=== PATIENT | female | born 1980 | race African-American/Black ===

== ENCOUNTER 2020-11-17 00:01 | Inpatient (IN) | payer BC, SELFPAY ==
--- NOTE | 2020-11-16 17:05 | PM.IMHP ---
H&P: HPI History of Present Illness Date/Time: 11/16/20 17:05 40 y/o F presenting for elective induction of labor at 39w. Cervidil followed by Yina patient stands her condition procedure and risks and agrees to proceed complicated by advanced maternal age, recurrent miscarriage, history of ectopic , abnormal progesterone, MTHFR, hyperemesis gravidarum (resolved), smoker, genital herpes on antiviral therapy, GBS positive and HPV. care began 04/07/1990 with 10 visits monitored with serial ultrasounds none invasive testing negative for chromosome abnormality AFP screen negative level 2 ultrasound genetic Counseling negative 1 hour glucose normal ,GBS positive, treatments given for MTHFR with B12 folic acid progesterone and aspirin therapy. Patient has had no active herpes outbreaks while on antiviral therapy throughout the . she has multi parous and desires bilateral tubal sterilization she understands it is permanent irreversible she does not desire future fertility she signed the [facility] [place] of Public aid tubal consent forms she understands failure rate of 3 to 05/999 with increased risk of ectopic in its sequally and she agrees to proceed. Chief Complaint: elective induction of labor in Term Review of Systems Review of Systems: All systems reviewed & are unremarkable except as noted in HPI and below Constitutional: Constitutional: Reports no additional constitutional complaints Eyes: Eyes: Reports no additional eye complaints ENT: Reports system reviewed and no additional complaints, except as documented Cardiovascular: Cardiovascular: Reports no additional cardiovascular complaints Respiratory: Respiratory: Reports no additional respiratory complaints Gastrointestinal: Gastrointestinal: Reports no additional gastrointestinal complaints Genitourinary: Genitourinary: Reports no additional female genitourinary complaints Musculoskeletal: Musculoskeletal: Reports no additional musculoskeletal complaints Integumentary/Breasts: Skin/Breast: Reports system reviewed and no additional complaints, except as docu Neurologic: Reports system reviewed and no additional complaints, except as documented Psychiatric: Psychiatric: Reports no additional psychiatric complaints Endocrine: Endocrine: Reports no additional endocrine complaints Hematologic/Lymphatic: Hematologic/Lymphatic: Reports no additional hematologic/lymphatic complaints Allergic/Immunologic: Allergic/Immunologic: Reports no additional allergic/immunologic complaints [facility] Past Medical History Medical History (Updated 11/16/20 @ 17:28 by Yovany Gupta MD) Advanced maternal age (AMA) in Genital herpes Group B streptococcal carriage complicating Heterozygous MTHFR mutation C677T History of ectopic History of recurrent miscarriages 02/05/200584809Upxhuozm, SpontaneousOnly year known, pt did not know she was and they didn't say how far along she was.historical 02/05/20061Pt unsure of when in 2006 but was 4 weeks . HPV (human papilloma virus) anogenital infection Ovarian ectopic Excision of ectopic ovarian - 10/13/2019 Smoker Vaginal delivery 01/22/201214023 hrs.7 lbs.FVaginalFull Term [facility]Reg[facility] V[facility] delivery 05/23/20091406 lbs.10 oz.MVaginalFull Term BirthCritical access hospitalPt unsure of length of labor. Vaginal delivery 11/05/200714020 hrs.7 lbs.6 oz.MVaginalFull Term [facility]Reg[facility] Vaginal delivery 07/22/200114013 hrs.6 lbs.6.99 oz.MVaginalFull Term [facility] [facility] Surgical History (Updated 11/16/20 @ 17:31 by Yovany Gupta MD) History of salpingectomy Excision of ectopic ovarian - 10/13/2019 Family History Family History (Reviewed 11/16/20 @ 17:3
--- NOTE | 2020-11-16 17:18 | WPDHPUPDATE1 ---
History and Physical Update Update Date/Time: 11/16/20 17:18 History and Physical has been reviewed, including an updated exam of the patient. There are NO changes in the patient's condition. Risks, benefits, and alternatives have been discussed and questions answered. Patient agrees to proceed with procedure. 40 y/o F presenting for elective induction of labor at 39w. Cervidil followed by Yina patient stands her condition procedure and risks and agrees to proceed complicated by advanced maternal age, recurrent miscarriage, history of ectopic , abnormal progesterone, MTHFR, hyperemesis gravidarum (resolved), smoker, genital herpes on antiviral therapy, GBS positive and HPV. care began 04/07/1990 with 10 visits monitored with serial ultrasounds none invasive testing negative for chromosome abnormality AFP screen negative level 2 ultrasound genetic Counseling negative 1 hour glucose normal ,GBS positive, treatments given for MTHFR with B12 folic acid progesterone and aspirin therapy. Patient has had no active herpes outbreaks while on antiviral therapy throughout the . she has multi parous and desires bilateral tubal sterilization she understands it is permanent irreversible she does not desire future fertility she signed the [place] department of Public aid tubal consent forms she understands failure rate of 3 to 05/999 with increased risk of ectopic in its sequally and she agrees to proceed.
[2020-11-17] VITALS (188 sets, daily range): BP systolic 89–126; BP diastolic 38–78; PULSE 26–134; RESP 16–18; TEMP 36.1–36.8; O2SAT 87–100; BMI 31.6
--- NOTE | 2020-11-17 00:01 | LDADM ---
This patient, Bobbi Guevara, was admitted to Labor/Delivery/Recovery 104 on 11/17/20 at 00:01. Plans for labor, pain management and were discussed with patient. Patient/family oriented to hospital policies and general routines including ID bracelet, bed and alarms, visiting hours, pain management, procedures, bathroom and other care routines, personal items, smoking policy, room service/diet and guest tray routines, security routines, and visiting hours. Patient/Family are encouraged to report perceived risks to care and to ask questions if they do not understand what they are told or what they should do. See OBIX for further documentation.
--- OUTSIDE RECORDS SUMMARY | 2020-11-17 00:15 | XMS_ITS ---
:1980 Author Care Team Providers Name Role Phone OSIRIS BEYER Machine Heel Sprayer [phone] Allergies Code Code System Name Reaction Severity Status Onset Penicillins Hives Moderate Active ? Notes: NKDA 01/19/17 BK Medications Name Status Start Date Stop Date ? ? acyclovir 800 mg tablet Active ? Not avai lable TAKE 1 TABLET BY MOUTH EVERY DAY Aspirin Low Dose 81 mg tablet,delayed release Completed ? 11/04/2020 Take 2 tablets every day by oral route. baclofen 10 mg tablet Completed ? 09/04/2019 calcium 250 mg-D3 400 unit-magnesium 40 [id number]-copper-raymundo an tablet Completed ? 04/07/2020 Take 2 tablets every day by oral route as directed for 30 days. Calcium with Vitamin D 600 mg (1,500 mg)-400 unit tablet Active ? Not available Take 1 tablet twice a day by oral route. cyanocobalamin (vit B-12) 1,000 mcg/mL injection solution Active ? Not available Inject 1 mL every month by subcutaneous route. cyclobenzaprine 10 mg tablet Completed ? Depo-Provera 150 mg/mL intramuscular syringe Completed ? 11/01/2018 Inject 150 mL every 3 months by intramuscular route as directed . ergocalciferol (vitamin D2) 1,250 mcg Completed ? 04/07/2020 (50,000 unit) capsule famotidine 20 mg tablet Active ? Not avai lable Take 1 tablet twice a day by oral route. fluticasone propionate 50 mcg/actuation Completed ? 11/01/2018 nasal spray,suspension folic acid 1 mg tablet Active ? Not avail able Take 2 tablets twice a day by oral rout
--- OUTSIDE RECORDS SUMMARY | 2020-11-17 00:16 | XMS_ITS | Encounter Summary ---
:1980 Author Care Team Providers Name Role Phone Lesley BEYER Boiler Installer [phone] Reason for Visit ob routine visit Assessment and Plan 1. Routine care Amniotic sac still intact. f/u in 1 week. ? urinalysis, dipstick 2. Advanced maternal age ? advanced maternal age: car e instructions 3. Heterozygous methylenetetrahy drofolate reductase mutation 4. Abnormal progesterone 5. Genital herpes simplex ? genital herpes: care instr uctions 6. Group B Streptococcus carrier 7. Human papilloma virus infecti on 8. History of ectopic Discussion Note: None recorded. Plan of Care Reminders Provider Appointments Ob 15 on or around Yovany taylor, 11/18/2020 ? 12/07/2020 Yovany calvo, 15 3:45PM Lab Urinalysis, 11/11/2020 In-Of fice Order Dipstick Referral None ? ? recorded. Procedures None ? ? recorded. Surgeries None ? ? recorded. Imaging None ? ? recorded. Medications Name Start Date ? ? acyclovir 800 mg tablet ? TAKE 1 TABLET B
--- OUTSIDE RECORDS SUMMARY | 2020-11-17 00:16 | XMS_ITS | Encounter Summary ---
:1980 Author Care Team Providers Name Role Phone Lesley BEYER Trucksmith [phone] Reason for Visit ob routine visit CC Pt having Benzie gillespie contractions, No spotting, fluid leakage. Baby moving well. Pt was unable to complete the 3 hr gtt, pt got sick. Assessment and Plan 1. Routine care KATJA at 36w1d. 09/23/2020 wi th appropriate growth, EFW 47%. 36 week labs/cultures today. RTC In [address] Gupta. ? urinalysis, dipstick ? CBC - Please fax results o [facility] [phone] 2. Advanced maternal age Follows with MFM. NIPT low ris k. Continue ASA for pre-eclampsia prevention. Warning signs discussed. 3. screening ? culture, vaginal/rectal, s treptococcus group B - Please fax results to [facility] [phone] 4. Venereal disease screening Routine screening ? HSV (1+2) DNA, qual, PCR, unspecified specimen - Please fax results to [facility] [phone] ? bacterial vaginosis + vagi nitis panel, vaginal - Please fax results to [facility] [phone] ? HIV 1+2 AB + HIV 1 p24 Ag, qualitative immunoassay, serum - Please fax results to [facility] [phone] ? RPR (rapid plasma reagin), serum - Please fax results to [facility] [phone] 5. Heterozygous methylenetetrahy drofolate reductase mutation heterozygous for the MTHFR C67 7T variant. Continue folic acid and progesterone. B12 administered.
--- OUTSIDE RECORDS SUMMARY | 2020-11-17 00:16 | XMS_ITS | Encounter Summary ---
:1980 Author Care Team Providers Name Role Phone Lesley BEYER Pocket Setter [phone] Reason for Visit ob routine visit Assessment and Plan 1. Routine care patient will be admitted to an [facility] labor and delivery tonight for induction ? urinalysis, dipstick 2. Advanced maternal age ? advanced maternal age: car e instructions 3. Heterozygous methylenetetrahy drofolate reductase mutation 4. Abnormal progesterone 5. Genital herpes simplex ? genital herpes: care instr uctions 6. Group B Streptococcus carrier Discussion Note: None recorded. Plan of Care Reminders Provider Appointments Ob 15 on or around Yovany talyor, 11/18/2020 ? 12/07/2020 Yovany calvo, 15 3:45PM Lab Urinalysis, 11/16/2020 In-Of fice Order Dipstick Referral None ? ? recorded. Procedures None ? ? recorded. Surgeries None ? ? recorded. Imaging None ? ? recorded. Medications Name Start Date ? ? acyclovir 800 mg tablet ? TAKE 1 TABLET BY MOUTH EVERY DAY Calcium with Vitamin D 600 mg (1,500 mg)-400 u
--- OUTSIDE RECORDS SUMMARY | 2020-11-17 00:16 | XMS_ITS | Encounter Summary ---
:1980 Author Care Team Providers Name Role Phone Lesley BEYER Stock Checkerer [phone] Reason for Visit ob routine visit Assessment and Plan Assessment Note DEON MayerS 1. Routine care KATJA at 30w0d. compli cated by advanced maternal age, recurrent miscarriage, abnormal progesterone, MTHF R, hyperemesis gravidarum, genital herpes, and HPV. 1 hour GCT completed today, tda p administered, kick counts discussed. RTC in 2 weeks. ? Boostrix Tdap 2.5 Lf unit- 8 mcg-5 Lf/0.5 mL intramuscular syringe ? US, obstetric, 3rd trimest er ? counting your baby's kicks : care instructions ? kick counts ? CBC - Please fax results t o [facility] [phone] 2. Advanced maternal age Follows with MFM. NIPT low ris k. 3. screening ? glucose tolerance test, po st-50G, 1-hour - Please fax results to [facility] [phone] 4. Heterozygous methylenetetrahy drofolate reductase mutation heterozygous for the MTHFR C67 7T variant. Continue folic acid and progesterone. B12 administered. ? cyanocobalamin (vit B-12) 1,000 mcg/mL injection solution 5. Recurrent miscarriage Recurrent miscarriage protocol . 6. Genital herpes simplex Acyclovir for suppression. 7. Pelvic and perineal pain ? maternity
--- OUTSIDE RECORDS SUMMARY | 2020-11-17 00:16 | XMS_ITS | Encounter Summary ---
:1980 Author Care Team Providers Name Role Phone Lesley BEYER Business Process Representative [phone] Reason for Visit ob routine visit CC No spotting, cramping or fluid leakag e. Baby moving well. Assessment and Plan 1. Routine care KATJA at 26w0d. compli cated by advanced maternal age, subchorionic hematoma, recurrent miscarriage, abnorma l progesterone, MTHFR, hyperemesis gravidarum, genital herpes, and HPV. Fol lowing with MFM. U/S 08/03/2020 with normal anatomy survey and appropriate fet al growth. RTC in 2 weeks for 1 hour GCT, f/u packet provided. ? urinalysis, dipstick 2. Advanced maternal age Follows with MFM. NIPT low ris k. Continue ASA. 3. Heterozygous methylenetetrahy drofolate reductase mutation heterozygous for the MTHFR C67 7T variant. Continue folic acid and progesterone. B12 administered. 4. Recurrent miscarriage Recurrent miscarriage protocol . 5. Genital herpes simplex Acyclovir for suppression. 6. Sterilization requested Patient desires PP BTL. Papers signed today Discussion Note: None recorded.Patient educational handouts: No information available. Plan of Care Reminders Provider Appointments Ob 15 on or around Yovany taylor, 11/18/2020 ? 12/07/2020 Yovany calvo, 15 3:45PM Lab Urinalysis, 08/18/2020 In-Of fice Order Dipstick
--- OUTSIDE RECORDS SUMMARY | 2020-11-17 00:16 | XMS_ITS | Encounter Summary ---
:1980 Author Care Team Providers Name Role Phone Lesley BEYER Leather Goods Sales Representative [phone] Reason for Visit ob routine visit CC Pt states that her stomach area is re ally tightening up . Pt is having cramping in lower abdomen and pelvic area. Pt is also having swelling in her feet ankles. No spotting, fluid leakage, or contrac tions. Baby not moving today, but has be en very active up til today. Assessment and Plan 1. Routine care ? urinalysis, dipstick 2. Advanced maternal age ? advanced maternal age: car e instructions 3. Abnormal progesterone 4. Heterozygous methylenetetrahy drofolate reductase mutation 5. Family planning surveillance Depo- Not to be started until 6 week post ? medroxyprogesterone 150 mg /mL intramuscular suspension Discussion Note Depo- Not to be started until 6 wee k post Plan of Care Reminders Provider Appointments Ob 15 on or around Yovany taylor, 11/18/2020 ? 12/07/2020 Yovany calvo, 15 3:45PM Lab Urinalysis, 11/04/2020 In-Of fice Order Dipstick Referral None ? ? recorded. Procedures None ? ? recorded. Surgeries None ? ? recorded. Imaging None ? ? recorded.
[2020-11-17] MEDS: LACTATED RINGERS 1,000 ML 125 ML IV CONT ×3 (01:01→17:20)
[2020-11-17] MEDS: CLINDAMYCIN 900 MG/D5W 50 ML 900 MG/50 ML PIGGYBACK 50 MG IVPB ×3 (01:02→17:20)
[2020-11-17] MEDS: DINOPROSTONE 10 MG VAG INSERT VAGINAL (01:05)
[2020-11-17 01:07] LABS: Basophils Percent Auto 0.5 % (0.2-1.2); Eosinophils Absolute Auto 0.1 K/mm3 (0-0.3); Eosinophils Percent Auto 1.6 % (0-4.4); Hemoglobin 10.4 g/dL (12.0-15.0); Immature Granulocyte Absolute 0.13 K/mm3 (0.00-0.031); Immature Granulocyte Percent A 1.6 % (0-0.5); Lymphocytes Absolute Auto 2.15 K/mm3 (0.9-3.2); Lymphocytes Percent Auto 25.7 % (18.3-44.2); Mean Corpuscular HGB Conc 32.5 g/dl (32-36); Mean Corpuscular Hemoglobin 27.2 pg (26-34); Mean Corpuscular Volume 83.6 fl (80-100); Mean Platelet Volume 10.6 fl (7.4-10.4); Monocytes Absolute Auto 0.7 K/mm3 (0.1-0.6); Monocytes Percent Auto 8.5 % (2.6-8.5); Neutrophils Absolute Auto 5.2 K/mm3 (1.3-6.7); Neutrophils Percent Auto 62.1 % (45.5-73.1); Platelet Count Result 291 k/mm3 (150-375); Red Blood Count 3.83 M/mm3 (4.2-5.4); Red Cell Distribution Width 14.9 % (11.5-14.5); White Blood Count 8.4 K/mm3 (4.5-10.0)
[2020-11-17 02:01] LABS: HIV 1/2 Ab P24 Ag Result Negative (Negative)
[2020-11-17 04:31] LABS: Barbiturate Screen Urine Negative (Negative); Benzodiazepines Screen Urine Negative (Negative)
[2020-11-17 04:35] LABS: Amphetamine Screen Urine Negative (Negative); Cannabinoid Screen Urine Negative (Negative); Methadone Screen Urine Negative (Negative); Opiate Screen Urine Negative (Negative); Phencyclidine Screen Urine Negative (Negative)
[2020-11-17 07:28] LABS: Rapid Plasma Reagin Non-Reactive (NonReactive)
[2020-11-17] MEDS: FAMOTIDINE 20 MG/2 ML VIAL IV PUSH (09:45)
--- NOTE | 2020-11-17 09:45 | PC.NURSE ---
Paused Clindamycin IVPB, flushed IV with NS, gave Pepcid over 3 mins, flushed with NS, and resumed Clindamycin IVPB
--- NOTE | 2020-11-17 09:51 | PM.OBPNLAB ---
Pain Control Date/time seen: 11/17/20 08:51 Pain control: tolerating well Pelvic Exam Dilation (cm): 2 Effacement (%): 50 station: -3 Amniotic membrane status: Intact Contractions Monitor mode: External Contraction pattern: Irregular Contraction phase: Resting Contraction intensity: Moderate Status status: Category l Assessment and Plan Assessment: induction ongoing Plan: continuous present management
--- NOTE | 2020-11-17 12:19 | WPDANESEPPF ---
Anes - Initial Pre Proc Eval Date/Time: 11/17/20 12:19 Surgeon: Yovany Gupta MD Pre Op Diagnosis: IOL Patient Data Age: 40 Gender: F Height: 1.65 m Weight: 86.36 kg Last Vital Signs Temp 36.3 C L 11/17/20 11:55 Pulse 85 11/17/20 10:45 Resp 16 11/17/20 04:30 BP 112/69 11/17/20 10:45 Allergies Allergy/AdvReac Type Severity Reaction Status Date / Time Penicillins Allergy Hives Verified 11/10/20 15:35 Home Medications Medication Instructions Recorded Confirmed Type PNV cmb#95-ferrous fumarate-FA 1 tablet PO HS 11/10/20 11/17/20 History [] progesterone micronized 200 mg PO HS 11/10/20 11/17/20 History Laboratory Tests 11/17/20 11/17/20 11/17/20 00:49 00:49 00:49 WBC 8.4 K/mm3 K/mm3 (4.5-10.0) RBC 3.83 M/mm3 L M/mm3 (4.2-5.4) Hgb 10.4 g/dL L g/dL (12.0-15.0) Hct 32.0 % L % (37.0-47.0) MCV 83.6 fl fl (80-100) MCH 27.2 pg pg (26-34) MCHC 32.5 g/dl g/dl (32-36) RDW 14.9 % H % (11.5-14.5) Plt Count 291 k/mm3 k/mm3 (150-375) MPV 10.6 fl H fl (7.4-10.4) Immature Gran % (Auto) 1.6 % H % (0-0.5) Neut % (Auto) 62.1 % % (45.5-73.1) Lymph % (Auto) 25.7 % % (18.3-44.2) Pender % (Auto) 8.5 % % (2.6-8.5) Eos % (Auto) 1.6 % % (0-4.4) Baso % (Auto) 0.5 % % (0.2-1.2) Lymph # (Auto) 2.15 K/mm3 K/mm3 (0.9-3.2) Pender # (Auto) 0.7 K/mm3 H K/mm3 (0.1-0.6) Eos # (Auto) 0.1 K/mm3 K/mm3 (0-0.3) Baso # (Auto) 0.0 K/mm3 K/mm3 (0.0-0.1) Abs Immat Gran (auto) 0.13 K/mm3 H K/mm3 (0.00-0.031) Absolute Neuts (auto) 5.2 K/mm3 K/mm3 (1.3-6.7) Absolute Nucleated RBC 0.0 K/mm3 K/mm3 (0.0-0.012) Nucleated RBC % 0.0 % % (0.0-0.2) Urine Opiates Screen Urine Methadone Screen Ur Barbiturates Screen Ur Phencyclidine Scrn Ur Amphetamine Screen U Benzodiazepines Scrn Urine Cocaine Screen U Cannabinoids Screen RPR Non-reactive (NonReactive) HIV 1&2 Ab/P24 Ag 4thGn Negative (Negative) Blood Type Antibody Screen 11/17/20 11/17/20 00:49 03:21 WBC RBC Hgb Hct MCV MCH MCHC RDW Plt Count MPV Immature Gran % (Auto) Neut % (Auto) Lymph % (Auto) Pender % (Auto) Eos % (Auto) Baso % (Auto) Lymph # (Auto) Pender # (Auto) Eos # (Auto) Baso # (Auto) Abs Immat Gran (auto) Absolute Neuts (auto) Absolute Nucleated RBC Nucleated RBC % Urine Opiates Screen Negative (Negative) Urine Methadone Screen Negative (Negative) Ur Barbiturates Screen Negative (Negative) Ur Phencyclidine Scrn Negative (Negative) Ur Amphetamine Screen Negative (Negative) U Benzodiazepines Scrn Negative (Negative) Urine Cocaine Screen TNP U Cannabinoids Screen Negative (Negative) RPR HIV 1&2 Ab/P24 Ag 4thGn Blood Type O Positive Antibody Screen Negative Patient hx anesthesia problems: none Family hx anesthesia problems: none Results Review: All pre-operative results and documents have been reviewed as part of the pre-operative evaluation. [facility] Past Medical History Medical History (Updated 11/16/20 @ 17:28 by Yovany Gupta MD) Advanced maternal age (AMA) in Genital herpes Group B streptococcal carriage complicating Heterozygous MTHFR mutation C677T History of ectopic History of recurrent miscarriages 01/01/26037Rkyrsxpf, SpontaneousOnly year known, pt did
[2020-11-17] MEDS: OXYTOCIN 30 UNITS/NS 500 ML 30 UNITS/500 ML BAG IV CONT (13:00)
--- NOTE | 2020-11-17 17:10 | PM.OBPNLAB ---
Pain Control Date/time seen: 11/17/20 17:10 Pain control: tolerating well and epidural (placed at noon) Pelvic Exam Dilation (cm): 4 Effacement (%): 75 station: -2 Amniotic membrane status: Ruptured (AROM clear amniotic fluid IUPC and FSE placed without difficulty) Contractions Monitor mode: Internal Contraction frequency: 3 Contraction duration: 50 Contraction pattern: Regular Contraction phase: Contraction Contraction intensity: Strong/Firm Status status: Category l Comments: decel to 54-60 for 40sec after AROM resolved with position change, IV fluids and O2 now 150 reactive Assessment and Plan Pitocin rate (mU/min): 6 Assessment: active labor and induction ongoing Plan: continuous present management
--- NOTE | 2020-11-17 19:37 | PM.OBPNLAB ---
Pain Control Date/time seen: 11/17/20 19: Pain control: tolerating well and epidural Pelvic Exam Dilation (cm): 6 Effacement (%): 90 station: -1 Amniotic membrane status: Ruptured (AROM clear amniotic fluid IUPC and FSE placed without difficulty) Contractions Monitor mode: Internal Contraction frequency: 3 Contraction duration: 50 Contraction pattern: Regular Contraction phase: Contraction Contraction intensity: Strong/Firm Status status: Category l Assessment and Plan Assessment: active labor Plan: continuous present management Comments: has 3 doses of clindamycin for GBS prophylaxis
--- NOTE | 2020-11-17 20:02 | PM.OBPNLAB ---
Pain Control Date/time seen: 11/17/20 20:00 Pain control: tolerating well and epidural Pelvic Exam Dilation (cm): 10 Effacement (%): 100 station: +2 Amniotic membrane status: Ruptured (AROM clear amniotic fluid IUPC and FSE placed without difficulty) Contractions Monitor mode: Internal Contraction frequency: 3 Contraction pattern: Regular Contraction phase: Contraction Contraction intensity: Strong/Firm Status status: Category l Assessment and Plan Assessment: active labor Plan: continuous present management Comments: delivery
--- NOTE | 2020-11-17 20:22 | P.PCNOB_ITS ---
OB - Delivery Note Procedure Delivery date: 11/17/20 events: Labor Induction Intrapartal events: None Induction method: per pitocin protocol and per cervidil protocol Delivery augmentation: rupture of membranes Delivery monitor: internal FHT and internal uterine Route of delivery: Episiotomy description: None Laceration Description: None Specimen: Yes (Placenta, cord blood, cord blood gases) Quantitative Blood Loss (ml): 250 Anesthesia type: Epidural Disposition: floor Complications: None Narrative: Complete cervical dilation normal spontaneous vertex vaginal delivery a viable female infant over an intact perineum with normal delivery of the vertex followed by anterior shoulder infant delivered and then placed onto the maternal abdomen after normal rotation nose and throat bulb suction cord clamped and cut had spontaneous respirations and cry normal transition. Cord gases and cord blood obtained placenta delivered intact with a three-vessel cord spontaneously sent to pathology. Cervix vagina checked no sponges left in the vagina no cervical or vaginal lacerations the anal sphincters intact patient tolerated the procedure well was in delivery room 1. 0 4 stable condition [place] Baby Date of : 11/17/20 Time of : 20:10 Weeks of gestation at delivery: 39 gender: Female (Conchita) Weight (pounds): 6 Weight (ounces): 12 presentation: vertex position: Left Occiput Anterior Placenta delivery description: Spontaneous and Normal Configuration cord vessel description: 3 Vessels score one minute: 9 score five minutes: 9 Narrative: Normal exam normal transition taken to the nursery in stable condition
[2020-11-17] MEDS: OXYTOCIN 30 UNITS/NS 500 ML 30 UNITS/500 ML BAG 125 UNITS IV CONT (20:36)
--- NOTE | 2020-11-17 23:35 | PC.NURSE ---
Patient transferred to post room #285 via w/c. Pt requesting no visitors and no phone calls. Security is aware of pt request. Oriented to unit, room, information board, rooming in, admission packet and security measures. Patient verbalizes understanding.
[2020-11-18 03:30] VITALS: BP 96/63; PULSE 80; RESP 16; TEMP 36.6; O2SAT 97
[2020-11-18] MEDS: IBUPROFEN 600 MG TABLET PO ×4 (03:30→22:23)
[2020-11-18 05:55] LABS: Hematocrit 32.3 % (37.0-47.0); Hemoglobin 10.2 g/dL (12.0-15.0)
--- NOTE | 2020-11-18 07:31 | WPDANLDPN2 ---
Anes-Prog Note L&D Date/Time: 11/18/20 07:31 Comfortable throughout: labor and delivery Neuraxial method: epidural Epidural/Spinal procedure site: clean & non-tender Neuro status: Neuro function grossly intact. Cardiovascular status: normal Respiratory status: normal Airway patency: baseline Mental status: baseline Post-Op hydration status: normal Vital Signs: Last Vital Signs Temp 97.8 F 11/18/20 03:30 Pulse 80 11/18/20 03:30 Resp 16 11/18/20 03:30 BP 96/63 L 11/18/20 03:30 Pulse Ox 97 11/18/20 03:30 Pain score (VAS): 02/14 I/O: Intake & Output 11/17/20 11/17/20 11/18/20 15:59 23:59 07:59 Intake Total 1050 2550 Output Total 250 Balance 1050 2300 Post-procedural complaints: none Patient feedback: Patient satisfied with anesthetic care.
[2020-11-18 08:05] VITALS: BP 103/63; PULSE 66; RESP 18; TEMP 37.2; O2SAT 100
[2020-11-18] MEDS: MULTIVIT/MIN/PREN/FOL AC/IRON TABLET 1 TAB PO (09:35)
[2020-11-18 12:35] VITALS: BP 95/55; PULSE 71; RESP 18; TEMP 37.4; O2SAT 96
[2020-11-18 16:15] VITALS: BP 106/57; PULSE 106; RESP 18; TEMP 36.8
[2020-11-18 19:20] VITALS: BP 104/63; PULSE 74; RESP 16; TEMP 36.9; O2SAT 97
[2020-11-19] MEDS: IBUPROFEN 600 MG TABLET PO ×2 (04:45→10:17)
--- NOTE | 2020-11-19 08:00 | PC.NURSE ---
Consult with pt., mother reports is eagerly feeding with slight tenderness This is mother?s 5th child to breastfeed. Mother reports she had to switch to formula after two weeks with other children due to low milk supply. Mother reports having Depo shot with other children and believes this effected milk supply. Requested mother call out next feeding for observation due to tenderness. Reviewed feeding cues, frequencies, duration of feedings, feeding elimination flow sheet, and signs of adequate intake. Demonstrated stimulation techniques to wake for feeding. Reviewed signs of a correct latch, effective nursing and suck swallow ratio. Nipple care reviewed of lanolin after feedings and warm compresses as needed.
[2020-11-19 08:05] VITALS: BP 112/75; PULSE 65; RESP 16; TEMP 37; O2SAT 100
--- NOTE | 2020-11-19 09:15 | PC.NURSE ---
Mother called out for assist with feeding. is able to freely thrust tongue past gum ridge and flange both lips. Skin is intact on both nipples, no redness and bruising noted. Reviewed feeding cues, frequencies, duration of feedings, feeding elimination flow sheet, and signs of adequate intake. Demonstrated stimulation techniques to wake for feeding. Assisted with to breast. Reviewed positioning/alignment in cross cradle, holding breast in ?U? hold and guided asymmetrical latch on. Reviewed rational for each. Mother puts infant to breast with cradle and latch is slightly shallow. Mother released latch for cross cradle and holding breast. able to latch correctly on first attempt. Infant nursed eagerly with steady draws and frequent swallowing noted, some pausing noted. Reviewed signs of a correct latch, effective nursing and suck swallow ratio. Suggested mother stimulate while feeding to increase stimulate, increase intake and to assist with maintaining deep latch. would slip to shallow latch causing tenderness. Demonstrated how to adjust latch more deeply while feeding if needed. Mother reports she can feel the difference in latch with no tenderness. Mother would release breast hold and would have tenderness. Mother's breasts are firm and believes her milk is transitioning in. Suggested to self express before feeding to soften and assist with deep latch. Nipple care reviewed of lanolin after feedings, warm compresses as needed. Mother is planning discharge later this day. Mother is feeding as required and waking infant to feed if needed. has had at least 8 effective feedings in the past 24 hours, and is currently meeting outcomes for weight, output, jaundice and feeding frequencies. Mother states she feels confident to continue effective at home. Reviewed transition to breast milk, signs of adequate intake, and engorgement/relief. Instructed to call ICP if intake/output less than required. Reviewed regular medications mother is taking. Information provided per [facility]. Reviewed community resources on the [employer] website and in the Mom[employer] guide. Information on outpatient services provided. Mother has no further questions at this time.
[2020-11-19] MEDS: MULTIVIT/MIN/PREN/FOL AC/IRON TABLET 1 TAB PO (10:17)
--- NOTE | 2020-11-19 11:18 | PM.OBPNVD ---
OB - PN: Subj Subjective Date/time seen: 11/19/20 11:18 Patient comments: no complaints and pain well controlled baby status: doing well and bottle feeding well [place] feeding status: exclusively bottle feeding OB - PN: Obj Data Labs CBC & Chem 7: 11/18/20 03:29 OB - PN A/P Assessment and Plan (1) Term delivered: Code(s): O80 - Encounter for full-term uncomplicated delivery Status: Acute (2) Advanced maternal age (AMA) in : Status: Acute Plan day: 1 Plan: routine care, discharge home and follow up 6 weeks Time Spent With Patient Time: Total time spent is greater than 50% in coordination of care (as documented) at patient's floor/unit and/or counseling patient: Time with patient: less than 15 minutes Review of Systems Review of Systems: All systems reviewed & are unremarkable except as noted in HPI and below Exam Const: General: comfortable, no acute distress, alert and awake Chest: Breast/axilla inspection: normal inspection of the breasts Resp: Effort & Inspection: normal respiratory effort Cardio: Rate: regular rate GI: GI Palp: Yes Soft to palpation Auscultation: normal bowel sounds : External Female Exam: normal external appearance Bimanual exam- vagina & uterus: non-tender Psych: Appearance: grossly normal Affect: normal affect Attitude: cooperative Thought content: Yes Normal thought content present Judgement: Good judgement present (Psych)
--- NOTE | 2020-11-19 11:20 | PM.OBDSVD ---
DS: Admitting Diagnosis Discharge Date 11/19/2020 Admitting Diagnosis (1) Term : Code(s): Z34.90 - Encounter for supervision of normal , unspecified, unspecified trimester Status: Acute (2) Advanced maternal age (AMA) in : Status: Acute (3) Elective induction of labor planned: Status: Acute (4) Heterozygous MTHFR mutation [id number]: Code(s): Z15.89 - Genetic susceptibility to other disease Status: Acute (5) Smoker: Code(s): F17.200 - Nicotine dependence, unspecified, uncomplicated Status: Acute (6) Genital herpes: Code(s): A60.00 - Herpesviral infection of urogenital system, unspecified Status: Acute (7) Group B streptococcal carriage complicating : Code(s): O99.820 - Streptococcus B carrier state complicating Status: Acute (8) HPV (human papilloma virus) anogenital infection: Code(s): A63.0 - Anogenital (venereal) warts Status: Acute DS: Discharge Diagnosis Discharge Diagnosis (1) Term delivered: Code(s): O80 - Encounter for full-term uncomplicated delivery Status: Acute (2) Advanced maternal age (AMA) in : Status: Acute (3) Elective induction of labor planned: Status: Acute (4) Heterozygous MTHFR mutation C677T: Code(s): Z15.89 - Genetic susceptibility to other disease Status: Acute (5) Smoker: Code(s): F17.200 - Nicotine dependence, unspecified, uncomplicated Status: Acute (6) Genital herpes: Code(s): A60.00 - Herpesviral infection of urogenital system, unspecified Status: Acute (7) Group B streptococcal carriage complicating : Code(s): O99.820 - Streptococcus B carrier state complicating Status: Acute (8) HPV (human papilloma virus) anogenital infection: Code(s): A63.0 - Anogenital (venereal) warts Status: Acute OB - DS: Summary Hospital Course Time spent discussing smoking cessation with patient: 3 to 10 minutes OB Procedures : NST and Ultrasound OB Procedures Intrapartum: Spontaneous Vag Delivery OB Procedures: : None Peripartum Data Delivery Method: Natural Vaginal Laceration Description: None Episiotomy description: None complications: none [place] 1: Gender: Female (Conchita) Disposition of : home Status at Discharge Cognitive/behavioral status at discharge: Normal Functional status at discharge: independent ambulation Overall status at discharge: patient is back to baseline Time Spent with Patient Time attestation: Total time spent providing and/or coordinating discharge services: Time spent: Less than 30 minutes Exam Const: General: cooperative, healthy appearing, comfortable, no acute distress, well developed, alert, awake and Physically active Nutritional Appearance: average body habitus and well nourished Orientation/consciousness: patient oriented x3 Limitations: no limitations Eyes: General: appearance normal, both eyes and all related structures Neck: Neck: normal visual inspection Chest: Chest palpation & inspection: normal inspection of the chest Resp: Effort & Inspection: normal respiratory effort Cardio: Rate: regular rate Rhythm: regular rhythm GI: Inspection: normal to inspection GI Palp: Yes Soft to palpation Auscultation: normal bowel sounds : External Female Exam: normal external appearance Bimanual exam- vagina & uterus: non-tender Back/Spine/Pelvis: Back: no CVA tenderness Skin: General skin exam: normal color Neuro: General: patient oriented x3, gait normal, tone normal, moves all extremities, Normal light touch and pain sensation, no meningeal signs and no focal motor deficits Extrem: General: normal to inspection and full ROM Psych: Appearance: grossly normal Mental Status: mental status grossly normal Speech and movement: Normal speech and movement p
[2020-12-22 14:59] LABS: Reference Lab Test Result None Detected
== END 2020-11-19 12:18 | disposition home or self-care (01) | DRG 560 ==
LOC: ANHLDR 20:34 → ANHOB2 23:53
PROVIDERS: Admitting Provider Obstetrics & Gynecology; PCP Internal Medicine; Visit Provider Obstetrics & Gynecology
DX: O99.284 Endocrine, nutritional and metabolic diseases complicating childbirth (principal); E72.12 Methylenetetrahydrofolate reductase deficiency; O99.334 Smoking (tobacco) complicating childbirth; F17.210 Nicotine dependence, cigarettes, uncomplicated; O98.32 Other infections with a predominantly sexual mode of transmission complicating childbirth; A60.00 Herpesviral infection of urogenital system, unspecified; O99.824 Streptococcus B carrier state complicating childbirth; O76 Abnormality in fetal heart rate and rhythm complicating labor and delivery; Z3A.39 39 weeks gestation of pregnancy; Z37.0 Single live birth
CPT/HCPCS: 36415; 80307; 85014; 85018; 85025; 86592; 86703; 86850; 86900; 86901; 88307; A9270; G0432; J2590; J2795; J7120